=== PATIENT | female | born 1990 | race Two or more races ===

== ENCOUNTER 2018-01-16 14:30 | Inpatient (IN) | payer OTHER ==
[~2018-01-16] VITALS: Ht 162.6 cm; Wt 3.6 kg
[~2018-01-16 14:30] MED LIST: CITRANATAL B-C1 EAC1; FOLIC ACID1 MG; IRON1 TA1
== END 2018-02-01 12:12 | disposition home or self-care (01) | DRG 766 ==
LOC: SURG-SUITE 01-29 01:21 → LDR 01-29 01:21 → O/R 01-29 08:11 → SURG-SUITE 01-29 10:56 → LDR 02-02 14:30
PROVIDERS: Obstetrics & Gynecology Maternal & Fetal Medicine
PROC: 4A1HXCZ Monitoring of Products of Conception, Cardiac Rate, External Approach (ICD-10-PCS; 2018-01-29)
PROC: 4A033R1 Measurement of Arterial Saturation, Peripheral, Percutaneous Approach (ICD-10-PCS; 2018-01-29)
PROC: 10D00Z1 Extraction of Products of Conception, Low, Open Approach (ICD-10-PCS; principal; 2018-01-29 07:00)
DX: O34.211 Maternal care for low transverse scar from previous cesarean delivery (principal); O36.63X0 Maternal care for excessive fetal growth, third trimester, not applicable or unspecified; Z3A.38 38 weeks gestation of pregnancy; Z37.0 Single live birth

== ENCOUNTER 2020-08-05 08:00 | Day surgery (SDC) | payer OTHER | END 2020-08-05 23:15 | disposition home or self-care (01) | LOC: CIR.AMB 08:00 | PROVIDERS: ATTEND Obstetrics & Gynecology | DX: Z30.2 Encounter for sterilization (principal) ==

== ENCOUNTER 2021-02-23 12:25 | Emergency (ER) | payer OTHER ==
[~2021-02-23] VITALS: Ht 162.6 cm; Wt 61.2 kg
[2021-02-23] MEDS ORDERED: KETO10TA2 PO (13:49)
== END 2021-02-23 14:41 | disposition home or self-care (01) ==
LOC: ER 12:25
DX: S93.401A Sprain of unspecified ligament of right ankle, initial encounter (principal); X50.0XXA Overexertion from strenuous movement or load, initial encounter; Y93.89 Activity, other specified; Y92.098 Other place in other non-institutional residence as the place of occurrence of the external cause; Y99.8 Other external cause status

== ENCOUNTER → 2022-01-05 09:29 | Outpatient (CLI) | payer OTHER ==
[~2022-01-05 09:29] MED LIST changes: +KETO10TA2 PO
== END | disposition home or self-care (01) ==
LOC: RX STUDY 09:29
PROVIDERS: ATTEND Obstetrics & Gynecology
DX: R10.2 Pelvic and perineal pain (principal)

== ENCOUNTER 2024-08-19 11:58 | Outpatient (CLI) | payer OTHER | END 2024-08-19 12:12 | disposition home or self-care (01) | LOC: RAD 11:58 | PROVIDERS: ATTEND Orthopaedic Surgery | DX: M79.671 Pain in right foot (principal) ==